=== PATIENT | female | born 1970 | race African-American/Black ===

== ENCOUNTER 2016-09-27 13:41 | Emergency (ER) | payer MEDICAID, OTHER ==
[~2016-09-27] VITALS: Ht 177.8 cm; Wt 100.0 kg
[2016-09-27 13:43] VITALS: BP 129/73; PULSE 74; RESP 16; TEMP 98.2; O2SAT 99
[2016-09-27] MEDS ORDERED: MOME17I EACH NARE (14:32)
[2016-09-27] MEDS ORDERED: AMOX500C PO (14:32)
--- NOTE | 2016-09-27 14:34 | PD ---
HPI Chief Complaint: Cold / Flu Symptoms Time Seen by Provider: 14:30 Travel History International Travel<30 days: No Contact w/Intl Traveler<30days: No Traveled to known affect area: No History of Present Illness HPI 46-year-old female presents to the emergency Department with complaint of itchy eyes, runny nose, nasal congestion, sneezing for the last 3-4 days. Reports history of seasonal allergies and takes loratadine. Ran out of her prescription of loratadine about a month ago and has not taken them since. He tried other oprz-apn-nlslnrh medications with no relief of symptoms. And denies fever, chills, nausea, vomiting. Denies sore throat, ear pain. Denies headache, body aches. No known allergies. Denies significant past medical history. Does not have an established primary care provider. No other modifying factors or associated signs and symptoms. PFSH Past Medical History ?: Not LMP: 09/27/16 Past Surgical History Section: Yes Social History Alcohol Use: No Tobacco Use: No Substance Use: No Allergies-Medications (Allergen,Severity, Reaction): Coded Allergies: No Known Allergies (Unverified , 09/27/16) Reported Meds & Prescriptions Reported Meds & Active Scripts Active Nasonex Nasal [place] (Mometasone Furoate) 50 Mcg/Act Naspr 2 [place] EACH NARE DAILY Amoxicillin 500 Mg Cap 500 Mg PO BID 7 Days Review of Systems Except as stated in HPI: all other systems reviewed are Neg Physical Exam Narrative GENERAL: Well-nourished, well-developed female patient, in no acute distress; afebrile, nontoxic-appearing SKIN: Warm and dry. No rash. HEAD: Atraumatic. Normocephalic. EYES: Pupils equal and round at 3 mm with brisk reaction. No scleral icterus. No injection or drainage. PERRLA. ENT: Mucosa pink and moist. No erythema or exudates. No uvular edema. No uvular , palatal, or tonsillar deviation. Airway patent. EARS: Bilateral pinnae and external canals appear within normal limits. Bilateral tympanic membranes without erythema, dullness or perforation. NECK: Trachea midline. No lymphadenopathy. CARDIOVASCULAR: Regular rate and rhythm. No murmur appreciated. RESPIRATORY: No accessory muscle use. Clear to auscultation. Breath sounds equal bilaterally. GASTROINTESTINAL: Abdomen soft, non-tender, nondistended. Hepatic and splenic margins not palpable. Bowel sounds are active 4 quadrants. MUSCULOSKELETAL: No obvious deformities. No clubbing. No cyanosis. No edema. NEUROLOGICAL: Awake and alert. Oriented 3. No obvious cranial nerve deficits. Motor grossly within normal limits. Normal speech. Moves all extremities. 5/5 strength to all extremities. PSYCHIATRIC: Appropriate mood and affect; insight and judgment normal. Data Data Last Documented VS Vital Signs Date Time Temp Pulse Resp B/P Pulse Ox O2 Delivery O2 Flow Rate FiO2 09/27/16 14:05 Room Air 09/27/16 13:43 98.2 74 16 129/73 99 MDM Medical Decision Making Medical Screen Exam Complete: Yes Emergency Medical Condition: Yes Medical Record Reviewed: Yes Differential Diagnosis Allergic rhinitis, sinusitis, viral illness Narrative Course 36-year-old female physical examination consistent with allergic rhinitis. She is afebrile and nontoxic-appearing. She denies fever, chills, nausea, vomiting. Discussed allergic rhinitis and symptom management. Patient requesting prescription for antibiotics. Antibiotics versus allergic rhinitis was discussed and the patient continues to want a prescription. Amoxicillin, Nasonex nasal spray prescribed for home. Instructed patient to take over-the- counter antihistamines or decongestions as directed and as needed for symptom management. Patient verbalizes understanding and agreement with treatment plan. Patient is medically cleared and stable for discharge. Discussed reasons to return to the emergency department. Instructed patient to follow up with primary care provider. Patient agrees with treatment plan. The patients vital signs are stable and the patient is stable for outpatient follow-up and treatment. Patient discharged home, stable and in no acute distress. Diagnosis Primary Impression: Allergic rhinitis Qualified Code: J30.9 - Allergic rhinitis, unspecified allergic rhinitis trigger, unspecified rhinitis seasonality Referrals: Primary Care Physician Patient Instructions: Allergic Rhinitis (ED), General Instructions Departure Forms: Tests/Procedures, Work Release Enter return to work date: Sep 28, 2016 Additional Instructions: Ibuprofen or Tylenol as instructed and as needed for fever/pain Kxka-pmk-qefljmk antihistamines or decongestants as directed and as needed for symptom management; you can get loratadine tqpq-xwn-glhauiz and use as directed Get plenty of sleep/rest Drink plenty of fluids to prevent dehydration; popsicles and Gatorade Use an air humidifier/turn off ceiling fans Follow-up with primary care provider Return immediately to the emergency department with worsening of symptoms Med/Other Pt SpecificInfo: Prescription(s) given Scripts Mometasone Nasal [place] (Nasonex Nasal [place])50 Mcg/Act Naspr2 [place] EACH NARE DAILY #1 BOTTLE Ref 0 Prov:Ashely Jones 09/27/16 Amoxicillin 500 Mg Fra923 Mg PO BID 7 Days Ref 0 Prov:Ashely Jones 09/27/16 Disposition: 01 DISCHARGE HOME Condition: Stable Ashely Jones Sep 27, 2016 14:34
== END 2016-09-27 14:46 | disposition home or self-care (01) ==
LOC: NEPB 13:41
DX: J30.9 Allergic rhinitis, unspecified (principal); R06.7 Sneezing; R09.81 Nasal congestion
CPT/HCPCS: 99283

== ENCOUNTER 2016-10-23 13:12 | Emergency (ER) | payer MEDICAID ==
[~2016-10-23] VITALS: Ht 182.9 cm; Wt 105.0 kg
[~2016-10-23 13:12] MED LIST: AMOX500C PO; MOME17I EACH NARE
[2016-10-23 13:15] VITALS: BP 120/67; PULSE 70; RESP 15; TEMP 97.6; TEMP 97.9; O2SAT 98
--- NOTE | 2016-10-23 13:25 | PD ---
HPI . left wrist splinter Chief Complaint: Skin Problem Time Seen by Provider: 13:25 Travel History International Travel<30 days: No Contact w/Intl Traveler<30days: No Traveled to known affect area: No History of Present Illness HPI 46-year-old female with no reported past medical history here with complaints of left distal wrist splinter. Patient was on the pair when she slit her wrist against the wood and a splinter pierced her skin. She tried removing it, but was unable to do so successfully. She decided come to the emergency department for further evaluation. She admits to pain, but states "Its' ok." She is just here to have the splinter removed. She is accompanied by her daughter. She has no other complaints. [facility] Past Medical History Diabetes: Yes (borderline) ?: Not Past Surgical History Section: Yes Social History Alcohol Use: No Tobacco Use: No Substance Use: No Allergies-Medications (Allergen,Severity, Reaction): Coded Allergies: No Known Allergies (Unverified , 10/23/16) Reported Meds & Prescriptions Reported Meds & Active Scripts Active No Active Prescriptions or Reported Medications Review of Systems General / Constitutional: No: Fever Eyes: No: Visual changes HENT: No: Headaches Cardiovascular: No: Chest Pain or Discomfort Respiratory: No: Shortness of Breath Gastrointestinal: No: Abdominal Pain Genitourinary: No: Dysuria Musculoskeletal: No: Pain Skin: Positive Other (splinter in left distal wrist/ulnar aspect), No Rash Neurologic: No: Weakness Psychiatric: No: Depression Endocrine: No: Polydipsia Hematologic/Lymphatic: No: Easy Bruising Physical Exam Narrative GENERAL: AAO x 3, no acute distress, Well-nourished, well-developed patient. SKIN: Warm and dry. No visible rashes or bruising. left distal wrist with small 1 cm visible splinter that is very superficial, about 0.3cm is penetrating out of the skin, the remainder is very superficial. HEAD: Normocephalic and atraumatic. EYES: No scleral icterus. No injection or drainage. ENT: No nasal drainage noted. Mucous membranes pink. Airway patent. NECK: Supple, trachea midline. No JVD. CARDIOVASCULAR: Regular rate and rhythm without murmurs, gallops, or rubs. RESPIRATORY: Breath sounds equal bilaterally. No accessory muscle use. No rhonchi or rales. GASTROINTESTINAL: Abdomen soft, non-tender, nondistended. EXTREMITIES: No cyanosis or edema. Hand movement is normal. BACK: Nontender without obvious deformity. No CVA tenderness. PSYCH: AAO x 3, normal affect. Data Data Last Documented VS Vital Signs Date Time Temp Pulse Resp B/P Pulse Ox O2 Delivery O2 Flow Rate FiO2 10/23/16 13:15 97.9 70 15 120/67 98 Orders Lidocaine 1% Inj (50 Ml) (Xylocaine 1% I (10/23/16 13:45) [facility] Medical Decision Making Medical Screen Exam Complete: Yes Emergency Medical Condition: Yes Medical Record Reviewed: Yes Differential Diagnosis superficial splinter, less likely wrist fracture, less likely cellulitis Narrative Course 34-year-old male with no significant past medical history here with complaints of left foot pain. Patient was working and something fell on his foot. He tells me that he reported to the person on site, but did not reported to the agency that he is hired by. He reports pain on the dorsum and plantar aspect of his midfoot. He says the pain was very severe, but now since he took Tylenol the pain is much better. Patient seen and examined. She does have a small splinter to her left distal wrist. Splinter was removed after patient gave verbal consent. Patient tolerated without incident. Advised to use ztxq-[id number]-vjiqmrd Tylenol or ibuprofen. She is up-to-date on her tetanus shot, which she received last year. Advised to look out for signs of infection and return to the ED if those appear. Patient verbalized understanding of instructions, questions were answered, and thanked me for their care. I advised them if their condition worsens, please return to the nearest emergency room for further care. Procedures Procedure Narrative Foreign body removal to the left distal wrist area was cleaned and anesthetized with 1% lidocaine locally Area was then cleaned again with Betadine and saline solution 11 blade was used to cut a small opening to allow extraction of the splinter. The entire splinter was removed and there was no remaining contents. Patient tolerated without incident. Steri-Strips were applied to keep the superficial skin closed. I advised her to keep this area clean for the next 3-5 days. We discussed signs of infections. Diagnosis Primary Impression: Superficial foreign body (splinter) Patient Instructions: Acute Wound Care (ED), General Instructions Additional Instructions: [place] for worsening signs of infection which include increased redness, increased warmth, purulent drainage, increased swelling or streaking. Change dressing on top of the Steri-Strips at least once a day. Use Tylenol or Motrin as needed for pain Med/Other Pt SpecificInfo: No Meds Exist/No RX given Scripts No Active Prescriptions or Reported Meds Disposition: 01 DISCHARGE HOME Condition: Stable Chandni Jo Oct 23, 2016 13:25
[2016-10-23] MEDS ORDERED: LIDOCAINE HCL 1% 50 ML VIAL INFIL ONE (13:45)
== END 2016-10-23 14:03 | disposition home or self-care (01) ==
LOC: NEPK 13:12
DX: S60.852A Superficial foreign body of left wrist, initial encounter (principal); W45.8XXA Other foreign body or object entering through skin, initial encounter; Y93.9 Activity, unspecified; Y92.9 Unspecified place or not applicable; Y99.9 Unspecified external cause status
CPT/HCPCS: 10120

== ENCOUNTER 2017-06-05 21:22 | Emergency (ER) | payer MEDICAID ==
[~2017-06-05] VITALS: Ht 182.9 cm; Wt 105.0 kg
[2017-06-05 21:23] VITALS: BP 137/69; PULSE 77; RESP 16; TEMP 97.8; O2SAT 98
--- NOTE | 2017-06-05 23:00 | PD ---
HPI Chief Complaint: Cold / Flu Symptoms Time Seen by Provider: 22:54 Travel History International Travel<30 days: No Contact w/Intl Traveler<30days: No Traveled to known affect area: No History of Present Illness HPI 46-year-old white female presents with a 4-to five-day history of cold symptoms. The patient states that she has had itching in her ears, runny nose, sore throat and cough. Some mild to moderate. Worse with coughing. She states that she feels like is a draining in the back of her throat causing her to cough. No alleviating factors. Using lhju-alt-edllvaf without relief. No fever chills. No shortness of breath or wheezing. No nausea vomiting. No bowel pain or diarrhea. History Past Medical Histgory Medical History: Denies Significant Hx LMP: 05-08-17 Social History Alcohol Use: No Tobacco Use: No Allergies-Medications (Allergen,Severity, Reaction): Coded Allergies: No Known Allergies (Unverified Adverse Reaction, Unknown, 06/05/17) Reported Meds & Prescriptions Reported Meds & Active Scripts Active No Active Prescriptions or Reported Medications Review of Systems Except as stated in HPI: all other systems reviewed are Neg Physical Exam Narrative GENERAL: Well-developed, well-nourished in no acute distress. Nontoxic appearing. HEAD: Normocephalic, atraumatic. EYES: Pupils equal round and reactive. Extraocular motions intact. No scleral icterus. No injection or drainage. ENT: TMs clear without erythema. The external auditory canals clear. Nose: clear . Posterior pharynx is pink and moist. No tonsillar edema or exudate. Uvula midline. Airway patent. NECK: Trachea midline.Supple, nontender, moves head freely. No central bony tenderness or spasm. CARDIOVASCULAR: Regular rate and rhythm without murmurs, gallops, or rubs. RESPIRATORY: Clear to auscultation. Breath sounds equal bilaterally. No wheezes , rales, or rhonchi. GASTROINTESTINAL: Abdomen soft, non-tender, nondistended. No hepato-splenomegaly , or palpable masses. No guarding. EXTREMITIES: No clubbing, cyanosis, or edema. No joint tenderness, effusion, or edema noted. BACK: Nontender without deformity or crepitance. No flank tenderness. Data Data Last Documented VS Vital Signs Date Time Temp Pulse Resp B/P (MAP) Pulse Ox O2 Delivery O2 Flow Rate FiO2 06/05/17 21:23 97.8 77 16 137/69 (91) 98 Room Air MDM Medical Screen Exam Complete: Yes Emergency Medical Condition: No Differential Diagnosis MDM: High Differential diagnoses: Pneumonia, bronchitis, URI, asthma, RAD, legionnaire's disease, SARS, ARDS, influenza, bronchiolitis, RSV,PE,CHF Narrative Course A medical screening exam was performed: At the time of evaluation the presenting medical condition was determined not to be of an emergent nature. The patient was given the option of receiving additional care, but declined. Patient was given options for additional community resources from which to obtain care. The Patient Has Been advised to seek medical attention for their presenting complaint. The patient has been advised to return to the ER at any time if an emergent condition develops. Primary Impression: Encounter for medical screening examination Scripts No Active Prescriptions or Reported Meds Condition: Laci Wagner Jun 05, 2017 23:00
== END 2017-06-05 23:57 | disposition left against medical advice (07) ==
LOC: NEPK 21:22
DX: R05 Cough (principal)
CPT/HCPCS: 99281

== ENCOUNTER 2017-07-18 06:35 | Emergency (ER) | payer MEDICAID ==
[~2017-07-18] VITALS: Ht 182.9 cm; Wt 107.0 kg
[2017-07-18 06:37] VITALS: BP 137/74; PULSE 114; RESP 18; TEMP 102.8; O2SAT 98
[2017-07-18] MEDS ORDERED: IBUPROFEN 800 MG TAB PO ONE (07:15)
[2017-07-18] MEDS ORDERED: IBUP-232 PO (08:14)
[2017-07-18] MEDS ORDERED: PENI500T PO (08:14)
[2017-07-18 08:18] VITALS: BP 128/65; PULSE 112; RESP 18; TEMP 100.3; O2SAT 98
--- NOTE | 2017-07-18 08:18 | PD ---
HPI Chief Complaint: Fever Time Seen by Provider: 07:04 Travel History International Travel<30 days: No Contact w/Intl Traveler<30days: No History of Present Illness HPI 46 year old female presents today with complaints of fevers, sore throat, left ear pain. The patient states that symptoms started about 3-4 days ago however got progressive the worse to the point where she came to the hospital. She states she took ibuprofen last night about 10:00 which helped however when she woke up this morning she was feeling worse. She reports associated chills. There is no nausea vomiting diarrhea. There are no other symptoms at the time of my examination. PFSH Past Medical History Anemia: Yes Diabetes: Yes (STATES IS NORMAL NOW) Patient Takes Glucophage: No Diminished Hearing: No Immunizations Current: Yes ?: Not Past Surgical History Section: Yes Social History Alcohol Use: No Tobacco Use: No Substance Use: No Allergies-Medications (Allergen,Severity, Reaction): Coded Allergies: No Known Allergies (Unverified Adverse Reaction, Unknown, 07/18/17) Reported Meds & Prescriptions Reported Meds & Active Scripts Active Ibuprofen 600 Mg Tab 600 Mg PO Q6H PRN Penicillin V Potassium 500 Mg Tab 500 Mg PO Q8H 10 Days Review of Systems Except as stated in HPI: all other systems reviewed are Neg General / Constitutional: Positive: Fever, Chills HENT: Positive: Headaches, Sore Throat, Earache (left ear), No: Neck Stiffness , Neck Pain Cardiovascular: No: Chest Pain or Discomfort, Palpitations Respiratory: No: Cough Gastrointestinal: No: Nausea, Vomiting, Abdominal Pain Genitourinary: No: Frequency, Dysuria Musculoskeletal: Positive: Myalgias, No: Weakness, Pain Skin: No Rash Neurologic: Positive: Headache (mild), No: Weakness, Dizziness Physical Exam Narrative GENERAL: Well-developed well-nourished female in no acute respiratory distress. SKIN: Focused skin assessment warm/dry. HEAD: Atraumatic. Normocephalic. EYES: No scleral icterus. No injection or drainage. ENT: No nasal bleeding or discharge. On examination the patient's posterior pharynx, there is redness with no exudate. TMs were clear bilaterally. She has shotty lymphadenopathy in her submandibular lymph nodes. NECK: Trachea midline. No JVD. CARDIOVASCULAR: Regular rate and rhythm. No murmur appreciated. RESPIRATORY: No accessory muscle use. Clear to auscultation. Breath sounds equal bilaterally. GASTROINTESTINAL: Abdomen soft, non-tender, nondistended. Hepatic and splenic margins not palpable. MUSCULOSKELETAL: No obvious deformities. No clubbing. No cyanosis. No edema. NEUROLOGICAL: Awake and alert. No obvious cranial nerve deficits. Motor grossly within normal limits. Normal speech. PSYCHIATRIC: Appropriate mood and affect; insight and judgment normal. Data Data Last Documented VS Vital Signs Date Time Temp Pulse Resp B/P (MAP) Pulse Ox O2 Delivery O2 Flow Rate FiO2 07/18/17 06:37 102.8 114 18 137/74 (95) 98 Orders Orders Group A Rapid Strep Screen (07/18/17 07:05) Influenzae A/B Antigen (07/18/17 07:05) Iv Access Insert/Monitor (07/18/17 07:05) Ecg Monitoring (07/18/17 07:05) Oximetry (07/18/17 07:05) Ibuprofen (Motrin) (07/18/17 07:15) MDM Medical Decision Making Medical Screen Exam Complete: Yes Emergency Medical Condition: Yes Differential Diagnosis Influenza versus strep throat versus viral syndrome Narrative Course 36-year-old female presents with cold and flulike symptoms. Patient has sore throat left ear pain and fever. The patient's influenza test were negative. She is positive for group A strep. She'll be treated with Penicillin VK 500 mg 3 times a day for 10 days. She's also been given a prescription for Motrin 600 mg every 6 hours. She is instructed to use Tylenol for breakthrough fever. She is also instructed to drink plenty of fluids. Diagnosis Primary Impression: Strep pharyngitis Additional Instructions: Use Tylenol if fever persists with Motrin. Drink plenty of fluids. Med/Other Pt SpecificInfo: Prescription(s) given Scripts Ibuprofen (Ibuprofen) 600 Mg Tab 600 MG PO Q6H Y for Pain/Inflammation, #40 TAB 0 Refills Prov: Ramu Odom MD 07/18/17 Penicillin V Potassium (Penicillin V Potassium) 500 Mg Tab 500 MG PO Q8H for Infection for 10 Days, #30 TAB 0 Refills Prov: Ramu Odom MD 07/18/17 Disposition: 01 DISCHARGE HOME Condition: Stable Ramu Odom MD Jul 18, 2017 08:18
== END 2017-07-18 08:30 | disposition home or self-care (01) ==
LOC: NEPC 06:35
DX: J02.0 Streptococcal pharyngitis (principal); B95.0 Streptococcus, group A, as the cause of diseases classified elsewhere; H92.02 Otalgia, left ear
CPT/HCPCS: 87804; 87880; 99283